=== PATIENT | female | born 1960 | race American Indian/Alaskan Native ===

== ENCOUNTER 2023-06-04 07:13 | Day surgery (SDC) | payer BC ==
[2023-06-04] MEDS ORDERED: Dextrose 5%-0.45% NaCl 1,000 ML IV SCH (07:30)
[2023-06-04] MEDS ORDERED: Midazolam 1 MG/ML 2 ML SDV ONE (08:30)
[2023-06-04] MEDS ORDERED: fentaNYL 100 MCG/2 ML SDV ONE (08:30)
[2023-06-04] MEDS ORDERED: fentaNYL 100 MCG/2 ML SDV IV ONE ×4 (09:09→09:32)
[2023-06-04] MEDS ORDERED: Midazolam 1 MG/ML 2 ML SDV IV ONE ×6 (09:10→09:16)
== END 2023-06-04 11:15 | disposition home or self-care (01) ==
LOC: DL.ENDO 07:13
PROVIDERS: ATTEND Internal Medicine Gastroenterology
DX: Z12.11 Encounter for screening for malignant neoplasm of colon (principal); K57.30 Diverticulosis of large intestine without perforation or abscess without bleeding; F41.8 Other specified anxiety disorders; G43.909 Migraine, unspecified, not intractable, without status migrainosus; D72.819 Decreased white blood cell count, unspecified; F41.1 Generalized anxiety disorder; E66.09 Other obesity due to excess calories; Z79.899 Other long term (current) drug therapy; Z98.890 Other specified postprocedural states; Z98.51 Tubal ligation status; Z90.710 Acquired absence of both cervix and uterus; Z68.22 Body mass index [BMI] 22.0-22.9, adult
CPT/HCPCS: J2250; J3010; J7042

== ENCOUNTER 2024-07-23 08:21 | Emergency (ER) | payer OTHER, BC ==
[2024-07-23 09:06] LABS: BASOPHILS PERCENT AUTO 0.2 % (0.0-1.0); EOSINOPHILS PERCENT AUTO 0.5 % (1.0-3.0); HEMATOCRIT 43.9 % (37.0-47.0); HEMOGLOBIN 14.5 g/dL (12.0-16.0); LYMPHOCYTES PERCENT AUTO 17.4 % (20.5-50.1); MEAN CORPUSCULAR HEMOGLOBIN 31.7 pg (27.0-34.0); MEAN CORPUSCULAR VOLUME 95.9 fL (80-100); MONOCYTES PERCENT AUTO 6.8 % (2-8); NEUTROPHILS PERCENT AUTO 75.1 % (42.2-75.2); PLATELET COUNT,PLT 222 10^3/uL (150-450); RED BLOOD CELL COUNT 4.58 10^6/uL (4.2-5.4); WHITE BLOOD CELL COUNT,WBC 8.1 10^3/uL (5.0-10.0)
[2024-07-23] MEDS: fentaNYL 100 MCG/2 ML SDV IVPUSH ONE (09:06)
[2024-07-23 09:25] LABS: A/G RATIO 1.1; ALANINE AMINOTRANSFERASE,ALT 25 U/L (14-59); ALBUMIN 3.9 g/dL (3.4-5.0); ALKALINE PHOSPHATASE 78 U/L (46-116); ANION GAP 12.3 mEq/L (7-13); ASPARTATE AMNIOTRANSFERASE,AST 28 U/L (15-37); BILIRUBIN TOTAL 0.6 mg/dL (0.2-1.0); BLOOD UREA NITROGEN,BUN 19 mg/dL (7-18); BUN/CREATININE RATIO 21.3 (No establ ref range); CALCIUM 8.8 mg/dL (8.5-10.1); CARBON DIOXIDE,CO2 28 mmol/L (21-32); CHLORIDE,CL 104 mmol/L (98-107); CREATININE 0.89 mg/dL (0.55-1.02); GLUCOSE RANDOM 90 mg/dL (70-99); POTASSIUM,K 4.3 mmol/L (3.5-5.1); PROTEIN TOTAL,TP 7.4 g/dL (6.4-8.2); SODIUM,NA 140 mmol/L (136-145)
[2024-07-23 09:26] LABS: ESTIMATED GFR 74 mL/min (>=60)
[2024-07-23] MEDS: Morphine 4 MG/ML Syringe IVPUSH ONE (11:58)
== END 2024-07-23 12:15 | disposition other institution (70) ==
LOC: DL.ED 08:21
DX: S40.012A Contusion of left shoulder, initial encounter (principal); M54.6 Pain in thoracic spine; Z90.710 Acquired absence of both cervix and uterus; Z79.899 Other long term (current) drug therapy; V49.50XA Passenger injured in collision with unspecified motor vehicles in traffic accident, initial encounter; Y92.410 Unspecified street and highway as the place of occurrence of the external cause
CPT/HCPCS: 36415; 70450; 71046; 71250; 72125; 72128; 73030; 73070; 74176; 80053; 85025; 93005; 96374; 96375; 99285; J2270; J3010